=== PATIENT | female | born 2000 | race Caucasian/White ===

== ENCOUNTER 2022-01-20 19:28 | Emergency (ER) | payer OTHER, SELFPAY ==
[2022-01-20 19:37] VITALS: BP 105/79; PULSE 113; RESP 20; TEMP 37.1; O2SAT 100
--- NOTE | 2022-01-20 19:52 | ED.BACK ---
HPI - Back Pain/Injury General Chief Complaint: Back Pain/Injury Stated Complaint: lt leg and lower back pain History of Present Illness HPI Narrative: This is a 21-year-old female comes in complaining of back pain lower back and her buttocks patient states she injured herself about a week ago denies taking anything for her symptoms states that her symptoms have improved the only problem she has that she is unable to run. Patient states that she has a [employer] football game tomorrow and she wants to be able to run in the game because it is very important that she plays. Patient would like to have some medication so she is able to run. Related Data Home Medications Medication Instructions Recorded Confirmed norelgestromin 150 mcg-e.estradiol patch 01/20/22 35 mcg/24 hr weekly transderm patch (Xulane) Allergies Allergy/AdvReac Type Severity Reaction Status Date / Time No Known Allergies Allergy Verified 01/20/22 19:33 Review of Systems Review of Systems: Back pain All systems reviewed & are unremarkable except as noted in HPI and below Exam Narrative: GENERAL:Well-appearing, well-nourished, and in no acute distress. HEAD:Normocephalic, atraumatic. EYES: PERRLA and EOMI. ENT: Nares clear, no rhinorrhea or epistaxis. Mucous membranes moist. CHEST: No respiratory distress. EXTREMITIES: Normal range of motion. No edema. Patient is able to bend without any pain she is able to stand and ambulate without any pain she informs me she is just unable to run SKIN: Warm, dry, no rash. NEURO: No focal deficits. Alert and oriented x3. Course Course Level of Care: Express Care Visit Vital Signs Vital signs: Vital Signs Temperature 98.8 F 01/20/22 19:37 Pulse Rate 113 H 01/20/22 19:37 Respiratory Rate 20 01/20/22 19:37 Blood Pressure 105/79 01/20/22 19:37 Pulse Oximetry 100 01/20/22 19:37 Temperature 98.8 F 01/20/22 19:37 Pulse Rate 113 H 01/20/22 19:37 Respiratory Rate 20 01/20/22 19:37 Blood Pressure 105/79 01/20/22 19:37 Pulse Oximetry 100 01/20/22 19:37 MDM - Back Pain/Injury Differential Diagnosis Differential diagnosis: Likely lumbar radiculopathy, sciatica, strain of lumbar region, renal colic, pyelonephritis and thoracic back pain Discharge Plan Discharge Clinical Impression: Sciatica, Strain of muscle, fascia and tendon of lower back, initial encounter Patient Disposition: Home, Self-Care Condition: Stable Instructions: Antibiotic Form, Muscle Strain (ED), Muscle Strain (DC), Lower Back Exercises (ED) Additional Instructions: Avoid weight bearing until the pain subsides. Ice to the area 20-30 minutes 4-6 times a day Elevate above heart Elastic wrap or orthopedic splint as directed for comfort for the next 5-7 days Tylenol for lesser pain Ibuprofen regularly for the next 2-3 days for the inflammation Follow up with your primary care provider if the condition is not improving within 1 week or sooner if the condition worsens with numbness, tingling, decrease sensation with weakness to seek ER. Prescriptions: New ibuprofen 800 mg tablet 800 mg PO TID PRN (Reason: pain) Qty: 20 0RF No Action Xulane 150-35 mcg/24 hr patch weekly Follow-up/Referrals: UNKNOWN,DOCTOR [Primary Care Provider] - Time of Disposition: 19:50
== END 2022-01-20 19:54 | disposition home or self-care (01) ==
PROVIDERS: Emergency Provider Nurse Practitioner Family
DX: M54.32 Sciatica, left side (principal); S39.012A Strain of muscle, fascia and tendon of lower back, initial encounter; X58.XXXA Exposure to other specified factors, initial encounter
CPT/HCPCS: 99213; G0463

== ENCOUNTER 2022-12-30 23:25 | Emergency (ER) | payer BC, SELFPAY ==
[2022-12-30 23:34] VITALS: BP 129/74; PULSE 120; RESP 18; TEMP 36.8; O2SAT 100
[2022-12-31 02:22] VITALS: BP 118/81; PULSE 108; RESP 15; TEMP 36.9; O2SAT 100
--- NOTE | 2022-12-31 03:29 | ED.WOUNDLAC ---
HPI - Wound/Laceration General Chief Complaint: Wound/Laceration Stated Complaint: lac to eyebrow Time Seen by Provider: 12/31/22 03:25 Source: patient Limitations: no limitations History of Present Illness HPI narrative: Patient is a 22-year-old female present to the emergency department complaining of a left forehead injury. Patient notes that at 10:30 PM she was playing part about football and collided with another individual resulting in a cut to her left eyebrow. Patient denies loss of consciousness. Patient does not know when her last tetanus shot was. Patient notes that she is currently on her menstrual cycle. Patient admits to mild discomfort over the laceration and otherwise denies any other injuries or pain. Patient has been ambulatory without difficulty. Patient denies nausea, vomiting, vision changes, headache, hearing changes. Patient notes that the bleeding is well controlled with pressure. Patient denies history of bleeding disorders. Related Data Home Medications Medication Instructions Recorded Confirmed norelgestromin 150 mcg-e.estradiol patch 01/20/22 35 mcg/24 hr weekly transderm patch (Xulane) Allergies Allergy/AdvReac Type Severity Reaction Status Date / Time No Known Allergies Allergy Verified 01/20/22 19:33 Review of Systems Review of Systems: A 10 system review of systems was completed on the patient and is negative except for what is stated in the HPI. Nursing and ancillary documentation was reviewed. PMFSH Comments At time of signature, I have reviewed and agree with nursing past medical, surgical, social and family history unless otherwise noted. Please see the nursing chart for further information. There is no relevant family history pertinent to the presenting complaint. Exam Narrative: CONST: No acute distress. Well nourished. HENMT: Head is normocephalic. 3 cm linear laceration hemostatic traversing the left eyebrow and forehead with depth of approximately 0.25 cm, no foreign bodies, no muscle involvement or eye involvement. No palpable bony deformities. Moist mucous membranes. No posterior oropharynx erythema. EYES: No conjunctival icterus, injection, or pallor. PERRL. Extraocular motions intact. NECK: No meningeal signs. RESP: Able to speak in full sentences. Normal respiratory effort. CTAB. CARDIO: Regular rate. Regular rhythm. 2+ DP and radial pulses bilaterally. GI: Nondistended. No tenderness to palpation. Soft. : No CVA tenderness to palpation. SKIN: No rashes or lesions noted on exposed skin. NEURO: Oriented x3. Moves all extremities. EXTREM: No pedal edema. PSYCH: Normal affect. Course Vital Signs Vital signs: Vital Signs Temperature 98.3 F 12/30/22 23:34 Pulse Rate 120 H 12/30/22 23:34 Respiratory Rate 18 12/30/22 23:34 Blood Pressure 129/74 12/30/22 23:34 Pulse Oximetry 100 12/30/22 23:34 Oxygen Delivery Room Air 12/30/22 23:34 Temperature 98.5 F 12/31/22 02:22 Pulse Rate 78 12/31/22 05:07 Respiratory Rate 14 12/31/22 05:07 Blood Pressure 118/78 12/31/22 05:07 Pulse Oximetry 100 12/31/22 05:07 Oxygen Delivery Room Air 12/30/22 23:34 Procedures Laceration Laceration 1: Date: 12/31/22 Time: 03:31 Site: face Side (If applicable): left Size (cm): 3 Description: linear Depth: simple, single layer Local Anesthetic: other anesthetic (LET) Amount of anesthesia used (mL): 3 Pre-repair: wound explored and irrigated extensively ====== Skin Level ====== Skin layer closed with: nylon Size (cm): 6-0 Number of sutures: 6 Technique: simple, interrupted ====== Subcutaneous Layer ====== ====== Muscle Layer ====== ====== Tendon Layer ====== MDM - Wound/Laceration MDM Narrative Medical decision making narrative: Patient presents with the above complaint. Initial vitals are remar
[2022-12-31] MEDS: TETANUS,DIPHTHERIA,AC PERTUSSIS ADULT (0.5 ML) BOOSTRIX IM (03:38)
[2022-12-31] MEDS: HYDROcodone/acetaminophen (*CRX) 5-325 MG TABLET 1 TAB PO (03:41)
[2022-12-31] MEDS: LIDOCAINE, EPINEPHRINE, TETRACAINE VISCOUS SOLN 3 ML TOPICAL (03:41)
[2022-12-31] MEDS: LIDOCAINE, EPINEPHRINE, TETRACAINE VISCOUS SOLN 3 ML (04:09)
[2022-12-31 05:07] VITALS: BP 118/78; PULSE 78; RESP 14; O2SAT 100
== END 2022-12-31 05:08 | disposition home or self-care (01) ==
PROVIDERS: Emergency Provider Student in an Organized Health Care Education/Training Program
DX: S01.112A Laceration without foreign body of left eyelid and periocular area, initial encounter (principal); Z23 Encounter for immunization; W51.XXXA Accidental striking against or bumped into by another person, initial encounter; Y93.61 Activity, american tackle football
CPT/HCPCS: 12013; 90471; 90715; 99283; A9270